=== PATIENT | female | born 1990 | race African-American/Black ===

== ENCOUNTER → 2024-11-23 | Outpatient (CLI) | payer BC ==
--- NOTE | 2024-11-23 11:34 | HMCIMG ---
US BREAST COMPLETE UNILATERAL REASON: UNSPECIFIED LUMP ON BREAST. COMPARISON: None TECHNIQUE: Right breast ultrasound study was performed FINDINGS: No evidence of cystic or hypoechoic mass is seen. IMPRESSION: No evidence of cystic or hypoechoic mass is seen. CATEGORY 2: BENIGN FINDINGS Recommend monthly self breast exam as well as annual clinical examination.
== END | disposition home or self-care (01) ==
LOC: RAH 10:40
PROVIDERS: ATTEND Obstetrics & Gynecology
DX: N63.11 Unspecified lump in the right breast, upper outer quadrant (principal)
CPT/HCPCS: 76641